=== PATIENT | female | born 1950 | race Caucasian/White ===

== ENCOUNTER 2020-05-04 11:19 | Outpatient (CLI) | payer MEDICARE, SELFPAY ==
[2020-05-04 11:36] LABS: Basophils Percent Auto 0.3 % (0.2-1.2); Eosinophils Absolute Auto 0.2 K/mm3 (0-0.3); Eosinophils Percent Auto 3.2 % (0-4.4); Hematocrit 43.3 % (37.0-47.0); Hemoglobin 14.6 g/dL (12.0-15.0); Immature Granulocyte Absolute 0.02 K/mm3 (0.00-0.031); Immature Granulocyte Percent A 0.3 % (0-0.5); Lymphocytes Absolute Auto 2.59 K/mm3 (0.9-3.2); Lymphocytes Percent Auto 36.5 % (18.3-44.2); Mean Corpuscular HGB Conc 33.7 g/dl (32-36); Mean Corpuscular Hemoglobin 30.2 pg (26-34); Mean Corpuscular Volume 89.6 fl (80-100); Mean Platelet Volume 9.4 fl (7.4-10.4); Monocytes Absolute Auto 0.5 K/mm3 (0.1-0.6); Monocytes Percent Auto 7.3 % (2.6-8.5); Neutrophils Absolute Auto 3.7 K/mm3 (1.3-6.7); Neutrophils Percent Auto 52.4 % (45.5-73.1); Platelet Count Result 230 k/mm3 (150-375); Red Blood Count 4.83 M/mm3 (4.2-5.4); White Blood Count 7.1 K/mm3 (4.5-10.0)
[2020-05-04 11:40] LABS: Blood Urea Nitrogen 23 mg/dL (8-26); Carbon Dioxide 26 mmol/L (22-30); Chloride 103 mmol/L (98-109); Estimated Glomerular Filt Rate > 60; Glucose 89 mg/dL (70-105); Potassium 4.1 mmol/L (3.5-4.9); Sodium 141 mmol/L (138-146)
[2020-05-04 13:43] LABS: Alanine Aminotransferase 19 U/L (4-35); Albumin Level 4.2 g/dL (3.5-5.1); Alkaline Phosphatase 51 U/L (38-126); Anion Gap 5 mmol/L (8-16); Aspartate Amino Transferase 24 U/L (14-36); Bilirubin,Total 0.4 mg/dL (0.2-1.3); Blood Urea Nitrogen 22 mg/dL (7-17); Carbon Dioxide 27 mmol/L (22-30); Chloride 105 mmol/L (98-107); Estimated Glomerular Filt Rate > 60; Glucose 93 mg/dL (65-105); Potassium 4.3 mmol/L (3.4-5.0); Sodium 137 mmol/L (137-145)
== END 2020-05-04 11:20 | disposition home or self-care (01) ==
PROVIDERS: PCP Internal Medicine; Visit Provider Internal Medicine Hematology & Oncology
DX: D68.59 Other primary thrombophilia (principal)
CPT/HCPCS: 36415; 80048; 80053; 83735; 85025

== ENCOUNTER 2021-05-03 11:26 | Outpatient (CLI) | payer MEDICARE, SELFPAY ==
[2021-05-03 11:40] LABS: Basophils Percent Auto 0.3 % (0.2-1.2); Eosinophils Absolute Auto 0.4 K/mm3 (0-0.3); Eosinophils Percent Auto 5.2 % (0-4.4); Hematocrit 41.9 % (37.0-47.0); Hemoglobin 13.9 g/dL (12.0-15.0); Immature Granulocyte Absolute 0.02 K/mm3 (0.00-0.031); Immature Granulocyte Percent A 0.3 % (0-0.5); Lymphocytes Percent Auto 37.1 % (18.3-44.2); Mean Corpuscular HGB Conc 33.2 g/dl (32-36); Mean Corpuscular Hemoglobin 29.8 pg (26-34); Mean Corpuscular Volume 89.7 fl (80-100); Mean Platelet Volume 8.8 fl (7.4-10.4); Monocytes Absolute Auto 0.6 K/mm3 (0.1-0.6); Monocytes Percent Auto 8.5 % (2.6-8.5); Neutrophils Absolute Auto 3.5 K/mm3 (1.3-6.7); Neutrophils Percent Auto 48.6 % (45.5-73.1); Platelet Count Result 246 k/mm3 (150-375); Red Blood Count 4.67 M/mm3 (4.2-5.4); Red Cell Distribution Width 13.2 % (11.5-14.5); White Blood Count 7.3 K/mm3 (4.5-10.0)
[2021-05-03 11:45] LABS: Blood Urea Nitrogen 17 mg/dL (8-26); Carbon Dioxide 29 mmol/L (22-30); Chloride 101 mmol/L (98-109); Estimated Glomerular Filt Rate > 60; Glucose 97 mg/dL (70-105); Potassium 4.2 mmol/L (3.5-4.9); Sodium 142 mmol/L (138-146)
[2021-05-03 17:11] LABS: Alanine Aminotransferase 19 U/L (4-35); Albumin Level 3.9 g/dL (3.5-5.1); Alkaline Phosphatase 45 U/L (38-126); Anion Gap 7 mmol/L (8-16); Aspartate Amino Transferase 61 U/L (14-36); Bilirubin,Total 0.5 mg/dL (0.2-1.3); Blood Urea Nitrogen 18 mg/dL (7-17); Calcium 8.9 mg/dL (8.4-10.2); Carbon Dioxide 29 mmol/L (22-30); Chloride 105 mmol/L (98-107); Estimated Glomerular Filt Rate > 60; Glucose 93 mg/dL (65-110); Magnesium 1.9 mg/dL (1.6-2.3); Potassium 4.3 mmol/L (3.4-5.0); Sodium 141 mmol/L (137-145)
== END 2021-05-03 11:27 | disposition home or self-care (01) ==
LOC: ANHLAB 11:30
PROVIDERS: PCP Internal Medicine; Visit Provider Internal Medicine Hematology & Oncology
DX: D68.59 Other primary thrombophilia (principal); R25.2 Cramp and spasm; D64.9 Anemia, unspecified
CPT/HCPCS: 36415; 80048; 80053; 83735; 85025

== ENCOUNTER 2021-08-27 11:09 | Outpatient (CLI) | payer MEDICARE, SELFPAY ==
--- NOTE | ~2021-08-27 | CT_ITS ---
EXAMINATION: CT sinus wo con DATE: 08/27/2021 11:36 INDICATION: Chronic maxillary sinusitis TECHNIQUE: Computed tomography (CT) of the paranasal sinuses was performed without intravenous contra st. The dose-length product was 345.66 mGy-cm. Automated exposure control and iterative reconstructio n technique were employed. COMPARISON: CT dated 12/23/2016 FINDINGS: There is mild mucosal thickening of the right maxillary and to a greater degree right sphen oid sinus. Mastoids are pneumatized. No air-fluid levels. No significant mucoperiosteal reaction. Rig htward nasal septal deviation. Ostiomeatal units are patent. IMPRESSION: 1. Mild-moderate sinus disease primarily involving the right sphenoid sinus. Reviewed, dictated and finalized at location A. [employer]
== END 2021-08-27 11:10 | disposition home or self-care (01) ==
LOC: ANHIMG 11:15
PROVIDERS: PCP Internal Medicine; Visit Provider Internal Medicine
DX: J32.0 Chronic maxillary sinusitis (principal)
CPT/HCPCS: 70486

== ENCOUNTER 2021-09-20 00:34 | Day surgery (SDC) | payer MEDICARE, SELFPAY ==
[2021-09-09 12:57] VITALS: BMI 33.4
[2021-09-20 10:20] VITALS: BP 143/72; PULSE 79; RESP 18; TEMP 36.7; O2SAT 99
[2021-09-20] MEDS: LACTATED RINGERS 1,000 ML 150 ML IV CONT (10:30)
--- NOTE | 2021-09-20 10:38 | WPDGICN ---
Assessment and Plan Assessment and plan (1) Cough: Code(s): R05.9 - Cough, unspecified Status: Acute Assessment and Plan: Patient complains of coughing after eating occasionally. Plan is for EGD to assess more thoroughly. If EGD unremarkable consider ENT evaluation. (2) Dysphagia: Code(s): R13.10 - Dysphagia, unspecified Status: Acute Assessment and Plan: Patient complains of a cough after eating. It is uncertain whether this is more with liquids or solid. Then EGD will be performed to exclude any obstruction in the esophagus. Patient does have a history of esophagitis suggesting acid reflux in the past. Currently denies heartburn. GI Consult Note Consult date/time: 09/20/21 10:38 HPI: Pooja Stearns is a 70 year old female Presents for EGD. Patient reports some coughing after eating. For this reason she is referred for an EGD. Patient states that she does not cough up food or liquid. She has perhaps more difficulty swallowning solids rather than liquids. Patient denies any weight loss or bleeding. She states in 2019 in 2012 she had previous EGDs done by a different physician that revealed distal esophagitis. At that time prescribed omeprazole she stopped this medication because she feels it did not help. Previous EGDs she had no coughing. It is uncertain but she may have had some difficulty swallowing at that time. She denies any prior history of dilatation of the esophagus. Patient currently swallows food without difficulty. Is very infrequent that food will catch within the chest. Her family history is noncontributory. She had an unremarkable colonoscopy 5 years ago. Patient primarily complains of a cough at this time. Patient denies heartburn at this time. Review of Systems Review of Systems: All systems reviewed & are unremarkable except as noted in HPI and below PMFSH Family History Family History (System 01/14/20 @ 10:06 by Deepika Rodríguez) Father Family history of dementia Sibling Family history of seizure disorder Mother Family history of congestive heart failure, Onset Age: 90 Social History Social History (System 01/14/20 @ 10:06 by Deepika Rodríguez) Smoking status: Never smoker Alcohol intake: current Substance use: never Substance use type: does not use Living arrangements: with family Spiritual care concerns: No Meds Home Medications and Allergies Home Medications Medication Instructions Recorded Confirmed Type Adult Allergy 10 mg PO DAILY 09/09/21 09/09/21 History Adult Probiotic 1 cap PO BID 09/09/21 09/09/21 History Multi-Vitamin W/Minerals 1 tab-cap PO BID 09/09/21 09/09/21 History Relora 1 cap PO BID 09/09/21 09/09/21 History amoxicillin-pot clavulanate 1 tablet PO BID 09/09/21 09/09/21 History aspirin [Adult Aspirin EC Low 81 mg PO DAILY 09/09/21 09/09/21 History Strength] cholecalciferol (vitamin D3) 2,000 unit PO DAILY 09/09/21 09/09/21 History [Vitamin D3] magnesium oxide 350 mg PO DAILY 09/09/21 09/09/21 History milk thistle 150 mg PO BID 09/09/21 09/09/21 History Allergies Allergy/AdvReac Type Severity Reaction Status Date / Time codeine AdvReac Intermediate NAUSOUS Verified 09/20/21 10:18 AND HEADACHE prednisone AdvReac Mild MUSCLE Verified 09/20/21 10:18 CRAMPS Contrast Media Allergy Severe SWELLING Uncoded 09/20/21 10:18 Vital Signs Vital Signs - 24 hr 09/20/21 10:20 Temperature 98.0 F Pulse Rate 79 Respiratory Rate 18 Blood Pressure 143/72 H Pulse Oximetry 99 Exam Narrative: Physical exam reveals patient be alert. Vital signs stable. HEENT exam is unremarkable. Patient is anicteric. Lungs are clear to auscultation and percussion. Heart is without murmur or extra sounds. Abdominal exam bowel sounds present soft nontender with no organomegaly.
--- NOTE | 2021-09-20 10:43 | P.PNAN_ITS ---
Anes - Eval Pre Procedure Procedure: Operation Date: 09/20/21 11:30 Proposed Procedures p Esophagogastroduodenoscopy - Bill Wilson MD Date/Time: 09/20/21 10:43 Pre Op Diagnosis: dysphagia Patient Data Age: 70 Gender: F Height: 1.61 m Weight: 90.1 kg Last Vital Signs Temp 36.7 C 09/20/21 10:20 Pulse 79 09/20/21 10:20 Resp 18 09/20/21 10:20 BP 143/72 H 09/20/21 10:20 Pulse Ox 99 09/20/21 10:20 Allergies Allergy/AdvReac Type Severity Reaction Status Date / Time codeine AdvReac Intermediate NAUSOUS Verified 09/20/21 10:18 AND HEADACHE prednisone AdvReac Mild MUSCLE Verified 09/20/21 10:18 CRAMPS Contrast Media Allergy Severe SWELLING Uncoded 09/20/21 10:18 Home Medications Medication Instructions Recorded Confirmed Type Adult Allergy 10 mg PO DAILY 09/09/21 09/09/21 History Adult Probiotic 1 cap PO BID 09/09/21 09/09/21 History Multi-Vitamin W/Minerals 1 tab-cap PO BID 09/09/21 09/09/21 History Relora 1 cap PO BID 09/09/21 09/09/21 History amoxicillin-pot clavulanate 1 tablet PO BID 09/09/21 09/09/21 History aspirin [Adult Aspirin EC Low 81 mg PO DAILY 09/09/21 09/09/21 History Strength] cholecalciferol (vitamin D3) 2,000 unit PO DAILY 09/09/21 09/09/21 History [Vitamin D3] magnesium oxide 350 mg PO DAILY 09/09/21 09/09/21 History milk thistle 150 mg PO BID 09/09/21 09/09/21 History Patient hx anesthesia problems: none Family hx anesthesia problems: none Results Review: All pre-operative results and documents have been reviewed as part of the pre-operative evaluation. [facility] Family History Family History (System 01/14/20 @ 10:06 by Deepika Rodríguez) Father Family history of dementia Sibling Family history of seizure disorder Mother Family history of congestive heart failure, Onset Age: 90 Social History Social History (System 01/14/20 @ 10:06 by Deepika Rodríguez) Smoking status: Never smoker Alcohol intake: current Substance use: never Substance use type: does not use Living arrangements: with family Spiritual care concerns: No Exam Day of Procedure 09/20/21 10:43 Patient weight: obese Heart: regular rate and rhythm Lungs: clear to auscultation Airway: Mallampati scale class II Neurological: alert and oriented
--- NOTE | 2021-09-20 10:49 | WPDANESEFPP ---
Anes - Eval Final PreProcedure Day of Procedure 09/20/21 10:49 Patient weight: obese Heart: regular rate and rhythm Lungs: clear to auscultation Airway: Mallampati scale class II Neurological: alert and oriented Last oral intake: >/= 8 hours ASA classification: II Emergent: no Anesthetic plan: proceed Anesthesia type and monitoring: general GIVS and standard monitoring Results Review: All pre-operative results and documents have been reviewed as part of the pre-operative evaluation. Informed Consent: The patient's anesthetic plan and its attendant risks and benefits were discussed with the patient/family/POA. Questions were solicited and answers provided to the satisfaction of the patient/family/POA.
[2021-09-20] MEDS: SIMETHICONE ORAL SUSPENSION 20 MG/0.3 ML 30 ML BOTTLE 0.6 ML IRRIGATION (10:56)
[2021-09-20 10:57] VITALS: BP 137/80; PULSE 79; RESP 23; O2SAT 99
[2021-09-20 11:07] VITALS: BP 123/78; PULSE 83; RESP 22; O2SAT 97
[2021-09-20 11:17] VITALS: BP 126/87; PULSE 72; RESP 16; O2SAT 98
== END 2021-09-20 11:30 | disposition home or self-care (01) ==
PROVIDERS: PCP Internal Medicine; Visit Provider Internal Medicine Gastroenterology
PROC: 0DJ08ZZ Inspection of Upper Intestinal Tract, Via Natural or Artificial Opening Endoscopic (ICD-10-PCS; CPT 43235; principal; 2021-09-20 11:30)
DX: R13.10 Dysphagia, unspecified (principal); K21.9 Gastro-esophageal reflux disease without esophagitis; E66.9 Obesity, unspecified; Z68.34 Body mass index [BMI] 34.0-34.9, adult
CPT/HCPCS: 43235; 43450; J2704; J7120

== ENCOUNTER 2023-02-22 12:34 | Outpatient (CLI) | payer MEDICARE, SELFPAY ==
--- NOTE | ~2023-02-22 | DEXA_ITS ---
Bone Density Report Name: MARIE WATKINS Age: 72 Sex: Female Ethnicity: White Date of : 1950 Indication: postmenopausal; screening for osteoporosis; height loss; Referring Provider: AKIRA, ZEB Study: Bone densitometry was performed. Exam Date: February 22, 2023 Accession number: [id number] Bone Density: Region BMD T-score Z-score Classification AP Spine(L1-L4) 1.153 1.0 3.3 Normal World Health Organization criteria for BMD impression classify patients as: Normal (T-score at or above -1.0), Osteopenia (T-score between -1.0 and -2.5), or Osteoporosis (T-score at or below -2.5). Clinical Information Provided by Patient: Has used the following medications: Vitamin D Patient maximum height was 65.5 Menopause Age: 44 Does not regularly consume dairy products Drinks caffeinated beverages Onset of menses at age 12 Number of children 2 Impression: The patient has normal bone mass. Discussion: LOW RISK OF FRACTURE; BONE DENSITY IS WELL ABOVE THE MINIMUM DESIRABLE LEVEL AND ABOVE AVERAGE FOR AGE AND SEX AT ALL SKELETAL SITES TESTED. This person's bone density is above expected limits for age and sex. This is rarely clinically significant, but should be pursued if there are significant musculoskeletal complaints. The patient should follow a healthful lifestyle (good nutrition with adequate calcium and vitamin D, and appropriate weight-bearing exercise). Follow-Up: Consider repeating this study in 5 years or sooner if there is some new clinical indication. Reported by: [facility] on 02/22/2023 12:53:00 PM. Reviewed, dictated and finalized at location [facility]
== END 2023-02-22 12:35 | disposition home or self-care (01) ==
LOC: ANHIMG 12:36
PROVIDERS: PCP Internal Medicine; Visit Provider Internal Medicine
DX: Z78.0 Asymptomatic menopausal state (principal)
CPT/HCPCS: 77080

== ENCOUNTER 2023-02-27 02:41 | Day surgery (SDC) | payer MEDICARE, SELFPAY ==
[2023-02-22 13:22] VITALS: BMI 38.2
--- NOTE | 2023-02-27 11:15 | PM.HPGS ---
History of Present Illness History of Present Illness Consent: Risks, benefits, and alternatives have been discussed and questions answered. Patient agrees to proceed with procedure. Chief complaint: hx colon polyps Narrative: Pooja Stearns is a 72 year old female Presents for screening colonoscopy. Patient's current weight appetite and bowel movements are normal. Patient denies abdominal pain. She has had no bleeding. Family history noncontributory. Patient has a very distant history of colon polyp. More recent colonoscopy has failed identified any polyps. Most recent colonoscopy 2016 was unremarkable. Patient presents today for neoplasia screening. Review of Systems Review of Systems: Review of systems noncontributory. [facility] Past Medical History Medical History (Updated 02/27/23 @ 11:17 by Bill Wilson MD) Arthritis Basal cell carcinoma (BCC) in situ of skin Behind rt ear H/O blood clots post liposuction 11/2016 Herpes age 23 High cholesterol History of gastroscopy 06/19/19 upper GI--mild esophagitis Hx of meterman use of blood thinners Screening mammogram, encounter for Stomach ulcer Surgical History Surgical History (Updated 12/06/22 @ 14:47 by JOHANA Zaman) History of breast biopsy 05/20/79 lt breast 12/08/08 vacuum assist core bx lt breast, stereotactic guidance 06/20/15 lt breast--benign History of cosmetic surgery 12/06/16 liposuction of stomach History of endoscopy (09/20/21) History of gynecologic surgery 09/23/18 vulvar biopsy History of hip replacement 02/14/12 rt hip 06/20/12 lt hip History of left oophorectomy (~1979) History of umbilical hernia repair (~12/2009) Family History Family History Father Family history of dementia Hypertension Hypercholesterolemia Sibling Family history of seizure disorder Breast cancer sister Mother Family history of congestive heart failure, Onset Age: 90 Hypertension Alzheimer's disease Social History Social History Smoking status: Never smoker Alcohol intake: never Substance use: never Substance use type: does not use Living arrangements: with family Additional living arrangements comments: Occupation/Education: retired Gender identity (if verbalized by the patient): Female Sexual Orientation (if Verbalized by the Patient): Straight or Heterosexual Spiritual care concerns: No Meds Home Medications and Allergies Home Medications Medication Instructions Recorded Confirmed Type Adult Allergy 10 mg PO DAILY 09/09/21 02/22/23 History Adult Probiotic 1 cap PO BID 09/09/21 02/22/23 History Multi-Vitamin W/Minerals 1 tab-cap PO BID 09/09/21 02/22/23 History aspirin 81 mg tablet,delayed 81 mg PO DAILY 09/09/21 02/22/23 History release cholecalciferol (vitamin D3) 50 2,000 unit PO DAILY 09/09/21 02/22/23 History mcg (2,000 unit) tablet (Vitamin D3) magnesium oxide 350 mg PO DAILY 09/09/21 02/22/23 History famotidine 20 mg tablet 20 mg PO BID #180 tabs 01/19/22 02/22/23 Rx sodium,potassium,mag sulfates 17.5 See Rx Instructions PO .COMPLEX 02/06/23 Rx gram-3.13 gram-1.6 gram oral soln #354 mL (Suprep Bowel Prep Kit) ashwagandha extract 120 mg capsule 1 mg PO DAILY 02/22/23 02/22/23 History atorvastatin 20 mg tablet 20 mg PO DAILY 02/22/23 02/22/23 History Allergies Allergy/AdvReac Type Severity Reaction Status Date / Time codeine AdvReac Intermediate NAUSOUS Verified 02/22/23 13:21 AND HEADACHE prednisone AdvReac Mild MUSCLE Verified 02/22/23 13:21 CRAMPS Contrast Media Allergy Severe SWELLING Uncoded 12/06/22 14:39 Exam Narrative: Physical exam reveals patient to be alert. Vital signs stable. HEENT exam is unremarkable. Patient is anicteric. Lungs are clear to auscultation and percussion. Heart is wi
[2023-02-27 11:23] VITALS: BP 146/82; PULSE 66; RESP 18; TEMP 36.2; O2SAT 100
[2023-02-27] MEDS: LACTATED RINGERS 1,000 ML 150 ML IV CONT (11:29)
--- NOTE | 2023-02-27 11:30 | WPDANESEPPF ---
Anes - Initial Pre Proc Eval Procedure: Operation Date: 02/27/23 12:30 Proposed Procedures p Colonoscopy - Bill Wilson MD Date/Time: 02/27/23 11:30 Surgeon: Bill Wilson MD Pre Op Diagnosis: hx colon polyps Patient Data Age: 72 Gender: F Height: 1.57 m Weight: 94.6 kg Last Vital Signs Temp 36.2 C L 02/27/23 11:23 Pulse 66 02/27/23 11:23 Resp 18 02/27/23 11:23 BP 146/82 H 02/27/23 11:23 Pulse Ox 100 02/27/23 11:23 O2 Del Method Room Air 02/27/23 11:23 Allergies Allergy/AdvReac Type Severity Reaction Status Date / Time codeine AdvReac Intermediate NAUSOUS Verified 02/27/23 11:22 AND HEADACHE prednisone AdvReac Mild MUSCLE Verified 02/27/23 11:22 CRAMPS Contrast Media Allergy Severe SWELLING Uncoded 12/06/22 14:39 Home Medications Medication Instructions Recorded Confirmed Type Adult Allergy 10 mg PO DAILY 09/09/21 02/22/23 History Adult Probiotic 1 cap PO BID 09/09/21 02/22/23 History Multi-Vitamin W/Minerals 1 tab-cap PO BID 09/09/21 02/22/23 History aspirin 81 mg tablet,delayed 81 mg PO DAILY 09/09/21 02/22/23 History release cholecalciferol (vitamin D3) 50 2,000 unit PO DAILY 09/09/21 02/22/23 History mcg (2,000 unit) tablet (Vitamin D3) magnesium oxide 350 mg PO DAILY 09/09/21 02/22/23 History famotidine 20 mg tablet 20 mg PO BID #180 tabs 01/19/22 02/22/23 Rx ashwagandha extract 120 mg capsule 1 mg PO DAILY 02/22/23 02/22/23 History atorvastatin 20 mg tablet 20 mg PO DAILY 02/22/23 02/22/23 History Patient hx anesthesia problems: none Family hx anesthesia problems: none Results Review: All pre-operative results and documents have been reviewed as part of the pre-operative evaluation. 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 H/O blood clots post liposuction 11/2016 Herpes age 23 High cholesterol History of gastroscopy 06/19/19 upper GI--mild esophagitis Hx of oysterman use of blood thinners Screening mammogram, encounter for Stomach ulcer Surgical History Surgical History History of breast biopsy 05/20/79 lt breast 12/08/08 vacuum assist core bx lt breast, stereotactic guidance 06/20/15 lt breast--benign History of cosmetic surgery 12/06/16 liposuction of stomach History of endoscopy (09/20/21) History of gynecologic surgery 09/23/18 vulvar biopsy History of hip replacement 02/14/12 rt hip 06/20/12 lt hip History of left oophorectomy (~1979) History of umbilical hernia repair (~12/2009) Family History Family History Father Family history of dementia Hypertension Hypercholesterolemia Sibling Family history of seizure disorder Breast cancer sister Mother Family history of congestive heart failure, Onset Age: 90 Hypertension Alzheimer's disease Social History Social History Smoking status: Never smoker Alcohol intake: never Substance use: never Substance use type: does not use Living arrangements: with family Additional living arrangements comments: Occupation/Education: retired Gender identity (if verbalized by the patient): Female Sexual Orientation (if Verbalized by the Patient): Straight or Heterosexual Spiritual care concerns: No Anes - Eval Final PreProcedure Day of Procedure 02/27/23 11:30 Patient weight: obese Heart: regular rate and rhythm Lungs: decreased breath sounds Airway: Mallampati scale class II Neurological: alert and oriented Last oral intake: >/= 8 hours ASA classification: III Emergent: no Anesthetic plan: proceed Anesthesia type and monitoring: general GIVS and standard monitoring Results Review: All pre-operative result
[2023-02-27 12:24] VITALS: BP 103/59; PULSE 69; RESP 21; O2SAT 96
[2023-02-27 12:34] VITALS: BP 110/65; BP 111/65; PULSE 67; PULSE 68; RESP 19; RESP 25; O2SAT 97; O2SAT 99
== END 2023-02-27 12:52 | disposition home or self-care (01) ==
PROVIDERS: PCP Internal Medicine; Visit Provider Internal Medicine Gastroenterology
PROC: 0DJD8ZZ Inspection of Lower Intestinal Tract, Via Natural or Artificial Opening Endoscopic (ICD-10-PCS; CPT 45378; principal; 2023-02-27 12:30)
DX: Z12.11 Encounter for screening for malignant neoplasm of colon (principal); D12.2 Benign neoplasm of ascending colon; K64.8 Other hemorrhoids; E78.00 Pure hypercholesterolemia, unspecified; E66.9 Obesity, unspecified; Z68.38 Body mass index [BMI] 38.0-38.9, adult
CPT/HCPCS: 45385; 88305; J7120

== ENCOUNTER 2025-07-01 10:22 | Outpatient (CLI) | payer MEDICARE, SELFPAY ==
--- NOTE | ~2025-07-01 | DEXA_ITS ---
Bone Density Report Name: MARIE WATKINS Age: 74 Sex: Female Ethnicity: White Date of : 1950 Indication: postmenopausal; screening for osteoporosis; parental hip fracture; height loss; cancer; Referring Provider: Darcy, Rita Study: Bone densitometry was performed. Exam Date: July 01, 2025 Accession number: [id number] Bone Density: Region BMD T-score Z-score Classification AP Spine(L1-L4) 1.177 1.2 3.7 Normal World Health Organization criteria for BMD impression classify patients as: Normal (T-score at or above -1.0), Osteopenia (T-score between -1.0 and -2.5), or Osteoporosis (T-score at or below -2.5). Previous Exams: -- Region Exam Age BMD T-score BMD Change BMD Change Date g/cm2 vs Baseline vs Previous -- AP Spine (L1-L4) 07/01/2025 74 1.177 1.2 -2.0%# 2.1%* 02/22/2023 72 1.153 1.0 -4.0%# -5.0%# 07/23/2017 66 1.213 1.5 1.0% -2.9%* 07/21/2015 64 1.249 1.8 4.0%* 11.7%* 07/01/2013 62 1.118 0.6 -6.9%* -6.9%* 01/11/2011 60 1.201 1.4 -- *Denotes significance at 95% confidence level, LSC for AP Spine = 0.022 g/cm2 # Denotes dissimilar scan types or analysis methods Clinical Information Provided by Patient: Parent has had a hip fracture Has used the following medications: Vitamin D Has the following medical conditions: Cancer Patient maximum height was 65.5 Menopause Age: 44 Drinks caffeinated beverages Onset of menses at age 12 Number of children 2 Impression: The patient has normal bone mass. The patient has risk factors, including: parental hip fracture. No significant bone loss was observed. Discussion: LOW RISK OF FRACTURE; BONE DENSITY IS WELL ABOVE THE MINIMUM DESIRABLE LEVEL AND ABOVE AVERAGE FOR AGE AND SEX AT ALL SKELETAL SITES TESTED. This person's bone density is above expected limits for age and sex. This is rarely clinically significant, but should be pursued if there are significant musculoskeletal complaints. The patient should follow a healthful lifestyle (good nutrition with adequate calcium and vitamin D, and appropriate weight-bearing exercise). Follow-Up: Consider repeating this study in 5 years or sooner if there is some new clinical indication. Reported by: JOE on 07/01/2025 10:48:00 AM. Reviewed, dictated and finalized at location A.
== END 2025-07-01 10:23 | disposition home or self-care (01) ==
LOC: MICIMG 10:23
PROVIDERS: PCP Internal Medicine; Visit Provider Internal Medicine
DX: Z13.820 Encounter for screening for osteoporosis (principal); Z78.0 Asymptomatic menopausal state
CPT/HCPCS: 77080